=== PATIENT | male | born 1930 | race Caucasian/White ===

== ENCOUNTER 2016-10-22 18:06 | Inpatient (IN) | payer BC ==
--- NOTE | ~2016-10-22 | DS ---
Discharge Summary [facility] [address] [place]. [address] NAME: ARSALAN PHILLIPS : 29 STATUS : DIS IN PAT#: [id number] AGE: 86 ADM/REG DATE : 10/22/16 MR#: [id number] REPORT SERV DATE: 10/30/16 DICTATED BY: IRASEMA GONZALEZ DATE: 10/29/16 REPORT STATUS : Draft TRANSCRIBED BY: MODL DATE: 10/29/16 ADMISSION DATE: 10/22/2016 DISCHARGE DATE: 10/29/2016 HOSPITAL COURSE: This is an 86-year-old male with known past medical history of asthma; COPD; AR; DVT history, on chronic Eliquis; nephrolithiasis; and history of GI bleed, who came in with right pain. Was walking, had a same-level fall, decrease range of motion in that area. As a result, the patient was seen to have a spiral fracture of the right side for which Dr. Moraes did an ORIF of the right periprosthetic femur fracture for a right femoral periprosthetic fracture below the total hip; this was on the 10/26/2016. Prior to this, the patient had to have cardiac clearance, even had to have a heart catheterization Dr. Clarke had recommended for which was found to have apical mild hypokinesis, normal LVEF, elevated LVEDP angiographically, significant epicardial coronary artery disease, right dominant coronary anatomy with continued medical therapy and intensive risk-factor modification. The patient also had an IVC filter that was placed on 10/26/2016 for which prior to this ultrasound showed residual thrombus producing partial occlusion of the right distal femoral vein. The patient with mild hypoxia, BMP though is 93, likely atelectasis, likely had some reactive thrombocytosis, reactive leukocytosis. His procal was normal. No overt signs of infection. Had constipation, got mag citrate. Then started having some diarrhea as expected thereafter. DISCHARGE MEDICATIONS: Will include aspirin 81 p.o. daily; Lipitor 40 p.o. daily; carvedilol 6.25 p.o. b.i.d.; diltiazem CD 240 p.o. daily for atrial fibrillation and history of tachyarrhythmia; Cardura 4 mg p.o. daily as well as Colace 100 p.o. b.i.d. as well as Pepcid 20 p.o. b.i.d. just for 30 days, this patient was maintained on that for a concern for dyspepsia at one time; iron sulfate 300 p.o. t.i.d. with meals over the counter; hydroxyurea 500 p.o. daily, would follow up with his primary care doctor regarding his medication; multivitamin one tablet p.o. daily; Coumadin sliding scale; acetaminophen p.r.n.; Lortab p.r.n., see script; and Dulcolax p.r.n. CONSULTS: 1. Cardiology. 2. Orthopedic Surgery. PROCEDURES: See above. DISCHARGE DIAGNOSES: 1. Right periprosthetic femur fracture, status post open reduction and internal fixation. 2. The patient had an elevated troponin and type 2 demand ischemia, is not in NSTEMI as his catheterization was normal. 3. History atrial fibrillation. 4. Hyperlipidemia. 5. Hypertension. 6. 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 7. Systemic inflammatory response syndrome. 8. Reactive thrombocytosis. Discharge Summary [address] [address] NAME: ARSALAN PHILLIPS : 29 STATUS : DIS IN PAT#: [id number] AGE: 86 ADM/REG DATE : 10/22/16 MR#: [id number] REPORT SERV DATE: 10/30/16 DICTATED BY: IRASEAM GONZALEZ DATE: 10/29/16 REPORT STATUS : Draft TRANSCRIBED BY: CAMILO DATE: 10/29/16 All questions were answered, it took well over 30 minutes to do. OLIVER/CAMILO Irasema Gonzalez DO / [id number] CC: DO Andre Hull M.D.
--- NOTE | ~2016-10-22 | HP ---
History And Physical [address] [place]. [address] NAME: ARSALAN PHILLIPS : 29 STATUS : ADM IN [facility]#: [id number] AGE: 86 ADM/REG DATE : 10/22/16 MR#: [id number] REPORT SERV DATE: 10/23/16 DICTATED BY: YVETTE NEWBY DATE: 10/22/16 REPORT STATUS : Draft TRANSCRIBED BY: CAMILO DATE: 10/22/16 DATE OF ADMISSION: 10/22/2016 CHIEF COMPLAINT: Right leg pain status post fall. HISTORY OF PRESENT ILLNESS: The patient is an 86-year-old male with past medical history of right hip pain that has been constant, moderate severity. The patient was walking today and had same-level fall and had noted decreased motion in leg with worsened range of motion. Quality is sharp, nonradiating. There is no nausea, vomiting, fever, chills, shortness of breath. The patient did have mild dizziness prior to this event. His pain is worse with range of motion and relieved only at rest and pain medication given in emergency room. Symptoms are still currently present but better after getting Dilaudid. ADDITIONAL REVIEW OF SYSTEMS: A 10-point review of systems negative except for that noted in the HPI. PAST MEDICAL HISTORY: Asthma, COPD, [place], DVT history on chronic Eliquis, kidney stones, GI bleed. SURGERY HISTORY: Right hip and left femur by Dr. Chnichilla. SOCIAL HISTORY: No smoking, alcohol, or illicits but has rarely taken alcohol in the past. Retired arc welder apprentice. FAMILY HISTORY: Sibling with lung cancer. Parents history unknown. ALLERGIES: NO KNOWN DRUG ALLERGIES. MEDICATIONS: Tylenol, Eliquis, Refresh, Cardizem, Cardura, hydroxyurea, and multivitamin. PHYSICAL EXAMINATION: VITAL SIGNS: The patient's blood pressure 142/82, pulse initially 80 up to 122, respirations 12, O2 saturations 95%. GENERAL: No acute distress at rest. Elderly frail. EYES: No scleral icterus. EOMI. ENT: Nares patent. Tongue midline. Moist mucous membranes. RESPIRATORY: Clear to auscultation. No wheezes. CV: Mildly tachycardic but regular. GI: Soft, nontender, nondistended. : Deferred. MUSCULOSKELETAL: Pain with any type of rotation with right hip pain but does have motion of feet. Sensation is grossly intact. SKIN: Warm and dry. LYMPH: No cervical lymphadenopathy. HEME: No bleeding. NEURO: Alert and oriented. Sensation grossly intact. Does have motion in extremities History And Physical [place] [id number] [facility] [place]. [address] NAME: ARSALAN PHILLIPS : 29 STATUS : ADM IN PAT#: [id number] AGE: 86 ADM/REG DATE : 10/22/16 MR#: [id number] REPORT SERV DATE: 10/23/16 DICTATED BY: YVETTE NEWBY DATE: 10/22/16 REPORT STATUS : Draft TRANSCRIBED BY: MODL DATE: 10/22/16 except for pain with motion of right hip. PSYCH: Appropriate mood and affect. DATA: WBC count 14.6, H and H 15.7 and 46.9, platelets 525, INR 1.2. Sodium 136, potassium 3.9, chloride 102, bicarb 18, BUN creatinine 27 and 1.37, glucose 129, magnesium 2.0, troponin negative, calcium 9.7. Hip x-ray shows spiral fracture right side. Telemetry; sinus tachycardia. ASSESSMENT AND PLAN: 1. Right hip fracture. 2. Chronic urinary retention. 3. History of polycythemia vera, essential thrombocytopenia. 4. Acute blood loss anemia history. 5. Atrial fibrillation flutter history. 6. Mild chronic kidney disease. 7. Leukocytosis. 8. Tachycardia. PLAN: 1. For right hip fracture; ER discussed with on-call for Dr. Chinchilla as family is requesting Dr. Chinchilla as he has done most recent surgery and fairly adamant that they want Dr. Chinchilla. ED has discussed and to place in 5 pounds Greene's traction. N.p.o. at midnight. Possible OR evaluation in a.m. 2. Chronic urinary retention, p.r.n. Ndiaye as needed. 3. History of polycythemia vera and essential thrombocytopenia with history of acute blood loss anemia. We will type and cross 2 units. H and H, currently stable but two units to be preop hold. 4. Atrial fibrillation flutter, currently sinus rhythm in the emergency room. He is on chronic Eliquis and on Cardizem. 5. Atrial fibrillation flutter history. The patient family actually reports they are unaware of but was documented in prior notes. 6. Mild CKD. We will monitor. 7. Leukocytosis that appears reactive. No acute signs or symptoms of infection. 8. Tachycardia. Gentle IV fluids. The patient was initially regular rate but does have discomfort and pain. 9. Disposition; pending surgical evaluation. DDN/MODL Yvette Newby MD History And Physical [address] [address] NAME: ARSALAN PHILLIPS : 29 STATUS : ADM IN PAT#: [id number] AGE: 86 ADM/REG DATE : 10/22/16 MR#: [id number] REPORT SERV DATE: 10/23/16 DICTATED BY: YVETTE NEWBY DATE: 10/22/16 REPORT STATUS : Draft TRANSCRIBED BY: MODL DATE: 10/22/16 / [id number] CC: Zeinab Dumas M.D.
--- NOTE | ~2016-10-22 | HP ---
History And Physical [address] [place] [place]. [address] NAME: ARSALAN PHILLIPS : 29 STATUS : ADM IN [facility]#: [id number] AGE: 86 ADM/REG DATE : 10/22/16 MR#: [id number] REPORT SERV DATE: 10/23/16 DICTATED BY: MARIA C NAIR DATE: 10/23/16 REPORT STATUS : Draft TRANSCRIBED BY: MODSanjeev DATE: 10/23/16 DATE OF ADMISSION: 10/22/2016 CHIEF COMPLAINT: Right hip and femur pain. HISTORY: This is an 86-year-old male with previous right total hip arthroplasty by one of my partners, tripped and fell yesterday and broke his femur. Denies pain or injury elsewhere except for some soreness in his left ankle. ALLERGIES: NONE. MEDICATIONS: See chart. PAST MEDICAL HISTORY: Hypertension, diverticulitis, GI bleed, history of prostate cancer, thrombocytosis, and polycythemia vera. He had no loss of consciousness, shortness of breath, chest pain, etc., but is little bit lightheaded before he fell. PAST SURGICAL HISTORY: Hip replacement in 2008, broken femur on the left in 2016. SOCIAL HISTORY: Quit tobacco. He is . No alcohol or illicit drug use. FAMILY HISTORY: No known anesthetic complications. REVIEW OF SYSTEMS: No recent illnesses. PHYSICAL EXAMINATION: GENERAL: He is alert and oriented x3, in no apparent distress. HEENT: Atraumatic, normocephalic. NECK: Supple. CHEST: Symmetric. Nontender. LUNGS: Per AA evaluation. CARDIOVASCULAR: Regular. ABDOMEN: Soft. No mass. EXTREMITIES: Both upper extremities, left lower extremity without acute trauma. He is nontender over his left ankle with minimal if any swelling. Right lower extremity compartment supple. Somewhat thready 1+ pulses. NEUROLOGIC: Sensory motor appears to be decreased secondary to pain. X-RAY: Comminuted right distal femur periprosthetic fracture. ASSESSMENT: Right periprosthetic distal femur fracture. PLAN: I had a lengthy discussion with the patient and his and his son regarding the serious nature of this fracture, comminution, blood clot, other risks of surgery, and also the prolonged expected rehabilitation recovery time. After discussion of all this, they History And Physical [address] [place]. [address] NAME: ARSALAN PHILLIPS : 29 STATUS : ADM IN PAT#: [id number] AGE: 86 ADM/REG DATE : 10/22/16 MR#: [id number] REPORT SERV DATE: 10/23/16 DICTATED BY: MARIA C NAIR DATE: 10/23/16 REPORT STATUS : Draft TRANSCRIBED BY: MODL DATE: 10/23/16 wished to proceed when he is cleared by medicine. WTB/MODL Luma Nair M.D. / [id number] CC: Zeinab Fletcher M.D.
--- NOTE | ~2016-10-22 | CN ---
Consultation Report [facility] [address] [facility] [place]. [address] NAME: ARSALAN PELAYO : 29 STATUS : ADM IN [facility]#: [id number] AGE: 86 ADM/REG DATE : 10/22/16 MR#: [id number] REPORT SERV DATE: 10/23/16 DICTATED BY: JUAN CARLOS BELL III DATE: 10/23/16 REPORT STATUS : Draft TRANSCRIBED BY: CAMILO DATE: 10/23/16 CONSULTATION DATE OF CONSULTATION: 10/23/2016 HISTORY OF PRESENT ILLNESS: Mr. Arsalan Pelayo is an 86-year-old, white male referred for evaluation of paroxysmal atrial fibrillation with a rapid ventricular response and an elevated troponin I level. The patient has a history of paroxysmal atrial fibrillation. The patient denied any history of palpitations. The patient did well until 10/22/2016. At that time, the patient experienced a fall resulting in a right paraprosthetic distal femur fracture. The patient subsequently developed atrial fibrillation-flutter with a rapid ventricular response. The atrial fibrillation apparently resolved without intervention. Serial troponin I levels were 0.25, 0.35 and 0.28, respectively. The patient's B-type natriuretic peptide level was 384.9 pg/mL. A 12-lead electrocardiogram performed on 10/23/2016, demonstrated sinus rhythm at a rate of 68 beats per minute, first degree AV block, left axis deviation, remote anteroseptal myocardial infarction and inferior nonspecific T-wave abnormalities. The patient was referred for evaluation. The patient complained of dependent bilateral pedal edema. The patient denied any history of chest pain, palpitations, syncope, dyspnea on exertion, orthopnea, paroxysmal nocturnal dyspnea, hip claudication, or lower extremity claudication. The patient has no history of rheumatic fever or cardiac murmur. The patient's only documented coronary artery disease risk factor was hypertension. PAST MEDICAL HISTORY: 1. Hypertension. 2. History of a postoperative deep venous thrombosis. 3. History of GI bleed. 4. Polycythemia rubra vera. 5. Essential thrombocytosis. 6. Mild chronic kidney disease. OPERATIVE PROCEDURES: 1. Status post right hip replacement. 2. Status post left femur open reduction and internal fixation. 3. Status post OU cataract extractions with intra-ocular lens implants. 4. Status post tonsillectomy. ALLERGIES: NONE. MEDICATIONS: 1. Carvedilol 3.125 mg p.o. b.i.d. 2. Diltiazem CD 240 mg p.o. daily. 3. Doxazosin 4 mg p.o. daily. Consultation Report [place] [address] [place]. [address] NAME: ARSALAN PELAYO : 29 STATUS : ADM IN PAT#: [id number] AGE: 86 ADM/REG DATE : 10/22/16 MR#: [id number] REPORT SERV DATE: 10/23/16 DICTATED BY: JUAN CARLOS BELL III DATE: 10/23/16 REPORT STATUS : Draft TRANSCRIBED BY: CAMILO DATE: 10/23/16 4. Heparin 5000 IU subcu q.8 hours. 5. Hydroxyurea 500 mg p.o. daily. FAMILY HISTORY: Positive for lung cancer. Negative for myocardial infarction, hypertension, stroke, seizures, diabetes mellitus, kidney disease, liver disease, anemia, arthritis, and mental illness. SOCIAL HISTORY: The patient has a remote history of tobacco and alcohol use. PHYSICAL EXAMINATION: GENERAL: Demonstrated an alert, thin, elderly white male, in no acute distress. VITAL SIGNS: Demonstrated a temperature of 98.4 orally, respiratory rate of 20 breaths per minute, and a blood pressure of 128/91 mmHg with a heart rate of 61 beats per minute. SKIN: Warm and dry. NECK: Supple and nontender. There was decreased range of motion. There was no appreciable lymphadenopathy or thyromegaly. There were no carotid bruits. There was no jugular venous distention at 90 degrees. BACK: Examination of the back could not be performed. CHEST: Examination of the chest demonstrated posterior inspiratory crackles. There were no rhonchi, wheezes, or pleural rubs. There was symmetrical expansion of the chest. CARDIAC: Cardiac examination demonstrated a nonpalpable apical impulse. There was a regular rhythm and rate with a grade II/ systolic murmur heard at the left ventricular apex. There was no significant radiation of the systolic murmur. There was no diastolic murmur, rub, gallop, or midsystolic click. There were no thrills or heaves. ABDOMEN: Examination of the abdomen demonstrated that it was mildly obese, soft, and nontender. There was no appreciable hepatosplenomegaly or masses. Bowel sounds were intact. There were no abdominal or femoral bruits. EXTREMITIES: Examination of the extremities demonstrated that they were symmetrical. There was decreased range of motion. There was no cyanosis or clubbing. There was 2+ pitting bilateral pedal edema. Pulses were 2+ and equal at the radial, femoral, and posterior tibial arteries. The right dorsalis pedis pulse was trace to nonpalpable and the left dorsalis pedis pulse was 1+. ASSESSMENT AND PLAN: Mr. Arsalan Pelayo is an 86-year-old, white male with one other risk factor for coronary atherosclerotic disease (i.e. hypertension) and a history of perioperative paroxysmal atrial fibrillation (2015); who now presents with asymptomatic paroxysmal atrial fibrillation with a rapid ventricular response, elevated troponin I level, abnormal 12-lead electrocardiogram, systolic murmur, and a left periprosthetic distal femur fracture. The patient denied angina. The 12-lead electrocardiogram demonstrated inferior nonspecific T-wave abnormalities and suggested a remote anteroseptal myocardial infarction. The serial troponin I levels are consistent with an acute non ST-segment elevation myocardial infarction. I would recommend the addition of aspirin, 2% Nitrol paste, and atorvastatin. The patient will require cardiac catheterization and possible revascularization prior to right femur open reduction and internal fixation. Consultation Report [address] [address] NAME: ARSALAN PELAYO : 29 STATUS : ADM IN [facility]#: [id number] AGE: 86 ADM/REG DATE : 10/22/16 MR#: [id number] REPORT SERV DATE: 10/23/16 DICTATED BY: JUAN CARLOS BELL III DATE: 10/23/16 REPORT STATUS : Draft TRANSCRIBED BY: MODSanjeev DATE: 10/23/16 Mr. Pelayo has asymptomatic paroxysmal atrial fibrillation with a rapid ventricular response. The etiology of the patient's atrial fibrillation was unclear. I would recommend a thyroid profile and an echocardiogram. The patient's [id number] VASc score was 3. The patient will require systemic anticoagulation for at least six months. It has been a pleasure participating in the care of your patient. TAE/CAMILO Juan Carlos Bell III, M.D., [facility], [facility] / [id number] CC: Zeinab Fletcher M.D.
--- NOTE | ~2016-10-22 | OP ---
Record Of Operation [facility] [address] [place]. [address] NAME: ARSALAN PHILLIPS : 29 STATUS : ADM IN PAT#: [id number] AGE: 86 ADM/REG DATE : 10/22/16 MR#: [id number] REPORT SERV DATE: 10/28/16 DICTATED BY: MARIA C NAIR DATE: 10/28/16 REPORT STATUS : Draft TRANSCRIBED BY: MODL DATE: 10/28/16 DATE OF PROCEDURE: 10/26/2016 PREOPERATIVE DIAGNOSIS: Right femur periprosthetic femur fracture below total hip. POSTOPERATIVE DIAGNOSIS: Right femur periprosthetic femur fracture below total hip. PROCEDURE: ORIF of the right periprosthetic femur fracture. SURGEON: Luma Nair M.D. MANAGER BABY: See chart. DESCRIPTION OF PROCEDURE: The patient was taken to the operating room, and placed supine on the table in normal fashion without incident. General anesthetic was induced per the anesthesiologist. The patient was carefully positioned, padded, prepped and draped in normal sterile fashion for the right lateral decubitus hip approach. Sharp dissection was made through a portion of the old incision which extended distally with electrocautery through the fat. The IT band and vastus were split in line with the fibers down on the femur. This was extremely long comminuted spiral femur fracture with multiple pieces including the large distal lateral butterfly fragment. I chose a long Daniel plate and held it provisionally affixed to the plate. There were multiple screws placed in the standard fashion with drill depth gauge and self-tapping screw placement as well as approximately seven cables were passed staying directly on the bone. Tightened, crimped, and cut short. I also used DBX bone matrix around some of the fracture areas because of the severe comminution. This recreated his leg length and alignment well. Wound was copiously irrigated. I used TXA to help control the multiple bleeding surface areas. The wound was then closed in a layered fashion over medium ConstaVac drain distally and anteriorly. COMPLICATIONS: None. SPECIMENS: None. ESTIMATED BLOOD LOSS: About 300 mL. WTB/MODL Luma Nair M.D. / [id number] CC: Rosalio Gonzalez DO Record Of Operation [address] [address] NAME: ARSALAN PHILLIPS : 29 STATUS : ADM IN PAT#: [id number] AGE: 86 ADM/REG DATE : 10/22/16 MR#: [id number] REPORT SERV DATE: 10/28/16 DICTATED BY: MARIA C NAIR DATE: 10/28/16 REPORT STATUS : Draft TRANSCRIBED BY: MODL DATE: 10/28/16 Andre Manuel M.D.
[~2016-10-22 18:06] MED LIST: ACET500CAP PO; ALEVE220 MG PO; ASAB PO; CARDCD240 PO; CARDU4 PO; CARDURA XL4 MG PO; CARTIA XT240 MG/24 PO; CENTRUM PO; COUMADIN3 MG PO; DOK100 MG PO; DSS PO; ELIQUIS 5 MG TAB5 MG PO; IODINE TOP; IRON325 MG PO; JAKAFI10 MG PO; LEVAQUIN750 MG PO; LOP25 PO; MAALOX PO; MINTOX PLUS PO; MIRALAXPKT PO; MULTIVIT/MIN PO; PCET PO; PEP20 PO; TEARS PLUS OPH; ZOFRAN4 PO
[2016-10-22 19:13] LABS: BASOPHILS 0.6 %; BASOPHILS ABSOLUTE 0.09 10/3/uL (0.0-0.16); EOSINOPHILS 0.5 %; EOSINOPHILS ABSOLUTE 0.07 10/3/uL (0.0-0.53); ER CBC TAT 0 Hrs 10 Mins; IMMATURE GRANULOCYTES 0.3 %; IMMATURE GRANULOCYTES ABSOLUTE 0.05 10/3/uL (0.0-0.11); LYMPHOCYTES ABSOLUTE 1.16 10/3/uL (0.67-4.30); MEAN CORPUS HGB CONC 33.5 g/dL (32.0-36.0); MEAN PLATELET VOLUME 9.8 fL (9.2-13.0); MONOCYTES 9.3 %; MONOCYTES ABSOLUTE 1.36 10/3/uL (0.21-1.20); NEUTROPHILS 81.3 %; NEUTROPHILS ABSOLUTE 11.83 10/3/uL (2.02-8.40); PLATELET COUNT 525 10/3/uL (150-400); RBC DISTRIBUTION WIDTH 17.5 % (12.0-16.0); WHITE BLOOD CELLS 14.6 10/3/uL (4.5-10.5)
[2016-10-22 19:14] LABS: HEMATOCRIT 46.9 % (40.0-51.0); HEMOGLOBIN 15.7 g/dL (13.6-17.8); MANUAL DIFF NO %; MEAN CORPUSCULAR HEMOGLOB 32.6 pg (26.0-34.0); MEAN CORPUSCULAR VOLUME 97.5 fL (80-100); RED CELL COUNT 4.81 10/6/uL (4.7-6.1)
[2016-10-22 19:23] LABS: INTERNATIONAL NORMAL RATI 1.2 UNITS (-); PARTIAL THROMBO TIME 36.2 SEC (22.5-37.2); PROTIME (NOT ORD) 15.1 SEC (12.0-14.5)
[2016-10-22 19:31] LABS: CALCIUM, SERUM 9.7 MG/DL (8.5-10.4); CHEST PAIN PROFILE TAT 0 Hrs 28 Mins; CHLORIDE, SERUM 102 MMOL/L (96-112); CREATININE 1.37 MG/DL (0.70-1.30); GFR AFRICAN AMERICAN 53 ML/MIN (>=60); GFR NON AFRICAN AMERICAN 46 ML/MIN (>=60); SODIUM, SERUM 136 MMOL/L (135-148); TROPONIN I 0.04 NG/ML (<0.05)
[2016-10-22 19:32] LABS: BUN (BLOOD UREA NITROGEN) 27 MG/DL (6-23); CO2 (CARBON DIOXIDE) 18 MMOL/L (24-34); GLUCOSE, SERUM 129 MG/DL (60-99); POTASSIUM, SERUM 3.9 MMOL/L (3.5-5.3)
[2016-10-22] MEDS ORDERED: HYDREA PO (20:58)
[2016-10-22] MEDS ORDERED: ELIQUIS 2.5 MG2.5 MG PO (20:58)
[2016-10-22] MEDS ORDERED: MVI PO (20:59)
[2016-10-22] MEDS ORDERED: REFRESH OPH SO0.3 ML OPH (20:59)
[2016-10-22] MEDS ORDERED: T PO (21:00)
[2016-10-22] MEDS ORDERED: CARDU4 PO (21:04)
[2016-10-23 08:06] LABS: BASOPHILS 0.3 %; BASOPHILS ABSOLUTE 0.04 10/3/uL (0.0-0.16); EOSINOPHILS 0.4 %; EOSINOPHILS ABSOLUTE 0.05 10/3/uL (0.0-0.53); HEMATOCRIT 43.6 % (40.0-51.0); HEMOGLOBIN 14.3 g/dL (13.6-17.8); IMMATURE GRANULOCYTES 0.3 %; IMMATURE GRANULOCYTES ABSOLUTE 0.04 10/3/uL (0.0-0.11); LYMPHOCYTES ABSOLUTE 0.85 10/3/uL (0.67-4.30); MANUAL DIFF NO %; MEAN CORPUS HGB CONC 32.8 g/dL (32.0-36.0); MEAN CORPUSCULAR HEMOGLOB 32.6 pg (26.0-34.0); MEAN CORPUSCULAR VOLUME 99.3 fL (80-100); MEAN PLATELET VOLUME 9.7 fL (9.2-13.0); MONOCYTES 13.4 %; MONOCYTES ABSOLUTE 1.91 10/3/uL (0.21-1.20); NEUTROPHILS 79.6 %; NEUTROPHILS ABSOLUTE 11.32 10/3/uL (2.02-8.40); PLATELET COUNT 546 10/3/uL (150-400); RBC DISTRIBUTION WIDTH 17.4 % (12.0-16.0); RED CELL COUNT 4.39 10/6/uL (4.7-6.1); WHITE BLOOD CELLS 14.2 10/3/uL (4.5-10.5)
[2016-10-23 08:12] LABS: INTERNATIONAL NORMAL RATI 1.2 UNITS (-); PROTIME (NOT ORD) 14.9 SEC (12.0-14.5)
[2016-10-23 08:22] LABS: CHLORIDE, SERUM 109 MMOL/L (96-112); CREATININE 1.02 MG/DL (0.70-1.30); GFR AFRICAN AMERICAN 76 ML/MIN (>=60); GFR NON AFRICAN AMERICAN 66 ML/MIN (>=60); GLUCOSE, SERUM 110 MG/DL (60-99); SGOT(AST) 31 U/L (5-40); SGPT(ALT) 21 U/L (5-65); SODIUM, SERUM 140 MMOL/L (135-148); TOTAL BILIRUBIN 0.5 MG/DL (0-1.2); TOTAL PROTEIN 7.2 G/DL (6.0-8.5)
[2016-10-23 08:26] LABS: A/G RATIO 0.8 (0.7-1.9); ALBUMIN 3.1 G/DL (3.5-5.0); ALKALINE PHOSPHATASE 89 U/L (45-117); BUN (BLOOD UREA NITROGEN) 21 MG/DL (6-23); CALCIUM, SERUM 8.7 MG/DL (8.5-10.4); CO2 (CARBON DIOXIDE) 22 MMOL/L (24-34); GLOBULIN 4.1 G/DL (2.5-4.1)
[2016-10-23 08:28] LABS: ASCORBIC ACID (UR NOT ORDER) NEG (NEG); BILIRUBIN, URINE NEGATIVE (NEG); KETONE, URINE NEGATIVE (NEG); LEUKOCYTE ESTERASE(NOT OR NEG (NEG); WBC (NOT ORDERED) (RFLEX) 3 (0-5)
[2016-10-24 07:23] LABS: BASOPHILS 0.6 %; BASOPHILS ABSOLUTE 0.09 10/3/uL (0.0-0.16); EOSINOPHILS 0.9 %; EOSINOPHILS ABSOLUTE 0.13 10/3/uL (0.0-0.53); HEMATOCRIT 41.4 % (40.0-51.0); HEMOGLOBIN 13.3 g/dL (13.6-17.8); IMMATURE GRANULOCYTES 0.3 %; IMMATURE GRANULOCYTES ABSOLUTE 0.04 10/3/uL (0.0-0.11); LYMPHOCYTES 6.4 %; LYMPHOCYTES ABSOLUTE 0.91 10/3/uL (0.67-4.30); MEAN CORPUS HGB CONC 32.1 g/dL (32.0-36.0); MEAN CORPUSCULAR HEMOGLOB 32.2 pg (26.0-34.0); MEAN CORPUSCULAR VOLUME 100.2 fL (80-100); MONOCYTES 14.3 %; MONOCYTES ABSOLUTE 2.02 10/3/uL (0.21-1.20); NEUTROPHILS 77.5 %; NEUTROPHILS ABSOLUTE 10.96 10/3/uL (2.02-8.40); PLATELET COUNT 463 10/3/uL (150-400); RBC DISTRIBUTION WIDTH 17.7 % (12.0-16.0); RED CELL COUNT 4.13 10/6/uL (4.7-6.1); WHITE BLOOD CELLS 14.2 10/3/uL (4.5-10.5)
[2016-10-24 07:24] LABS: MANUAL DIFF NO %
[2016-10-24 07:41] LABS: FREE T4 1.24 NG/DL (0.76-1.46)
[2016-10-24 07:42] LABS: TROPONIN I 0.15 NG/ML (<0.05); ULTRASENSITIVE TSH 1.69 MCIU/ML (0.358-3.740)
[2016-10-25 05:32] LABS: BASOPHILS 0.4 %; BASOPHILS ABSOLUTE 0.06 10/3/uL (0.0-0.16); EOSINOPHILS 0.9 %; EOSINOPHILS ABSOLUTE 0.14 10/3/uL (0.0-0.53); HEMATOCRIT 40.3 % (40.0-51.0); IMMATURE GRANULOCYTES 0.2 %; IMMATURE GRANULOCYTES ABSOLUTE 0.03 10/3/uL (0.0-0.11); LYMPHOCYTES 7.8 %; LYMPHOCYTES ABSOLUTE 1.16 10/3/uL (0.67-4.30); MEAN CORPUS HGB CONC 32.3 g/dL (32.0-36.0); MEAN CORPUSCULAR HEMOGLOB 32.3 pg (26.0-34.0); MEAN PLATELET VOLUME 9.9 fL (9.2-13.0); MONOCYTES 13.4 %; MONOCYTES ABSOLUTE 1.98 10/3/uL (0.21-1.20); NEUTROPHILS 77.3 %; NEUTROPHILS ABSOLUTE 11.43 10/3/uL (2.02-8.40); PLATELET COUNT 463 10/3/uL (150-400); RBC DISTRIBUTION WIDTH 17.3 % (12.0-16.0); RED CELL COUNT 4.03 10/6/uL (4.7-6.1); WHITE BLOOD CELLS 14.8 10/3/uL (4.5-10.5)
[2016-10-25 05:39] LABS: CALCIUM, SERUM 8.3 MG/DL (8.5-10.4); CHLORIDE, SERUM 106 MMOL/L (96-112); CO2 (CARBON DIOXIDE) 22 MMOL/L (24-34); CREATININE 1.02 MG/DL (0.70-1.30); GFR AFRICAN AMERICAN 76 ML/MIN (>=60); GFR NON AFRICAN AMERICAN 66 ML/MIN (>=60); GLUCOSE, SERUM 95 MG/DL (60-99); HDL CHOLESTEROL 68 MG/DL (> 39); POTASSIUM, SERUM 3.7 MMOL/L (3.5-5.3); SODIUM, SERUM 136 MMOL/L (135-148)
[2016-10-25 05:40] LABS: MANUAL DIFF NO %
[2016-10-25 05:41] LABS: BUN (BLOOD UREA NITROGEN) 17 MG/DL (6-23); CHOL/HDL RATIO(NOT ORDER) 1.6 (0-5); CHOLESTEROL 110 MG/DL (< 200); LDL CHOLESTEROL 33 MG/DL (< 130); NON-HDL CHOLESTEROL 42 MG/DL (< 160); TRIGLYCERIDE 47 MG/DL (< 150)
[2016-10-26 05:25] LABS: INTERNATIONAL NORMAL RATI 1.2 UNITS (-); PROTIME (NOT ORD) 15.2 SEC (12.0-14.5)
[2016-10-26 05:26] LABS: BASOPHILS 0.4 %; BASOPHILS ABSOLUTE 0.06 10/3/uL (0.0-0.16); CALCIUM, SERUM 8.4 MG/DL (8.5-10.4); CHLORIDE, SERUM 104 MMOL/L (96-112); CO2 (CARBON DIOXIDE) 25 MMOL/L (24-34); CREATININE 1.01 MG/DL (0.70-1.30); EOSINOPHILS 1.5 %; EOSINOPHILS ABSOLUTE 0.24 10/3/uL (0.0-0.53); GFR AFRICAN AMERICAN 77 ML/MIN (>=60); GFR NON AFRICAN AMERICAN 67 ML/MIN (>=60); GLUCOSE, SERUM 93 MG/DL (60-99); HEMOGLOBIN 12.8 g/dL (13.6-17.8); IMMATURE GRANULOCYTES 0.3 %; IMMATURE GRANULOCYTES ABSOLUTE 0.04 10/3/uL (0.0-0.11); LYMPHOCYTES 7.5 %; LYMPHOCYTES ABSOLUTE 1.19 10/3/uL (0.67-4.30); MEAN CORPUS HGB CONC 32.8 g/dL (32.0-36.0); MEAN CORPUSCULAR HEMOGLOB 32.5 pg (26.0-34.0); MONOCYTES 13.2 %; NEUTROPHILS 77.1 %; NEUTROPHILS ABSOLUTE 12.27 10/3/uL (2.02-8.40); PLATELET COUNT 533 10/3/uL (150-400); POTASSIUM, SERUM 4.1 MMOL/L (3.5-5.3); RBC DISTRIBUTION WIDTH 17.6 % (12.0-16.0); RED CELL COUNT 3.94 10/6/uL (4.7-6.1); SODIUM, SERUM 137 MMOL/L (135-148); WHITE BLOOD CELLS 15.9 10/3/uL (4.5-10.5)
[2016-10-26 05:28] LABS: BUN (BLOOD UREA NITROGEN) 21 MG/DL (6-23); MANUAL DIFF NO %
[2016-10-27 05:02] LABS: HEMATOCRIT 39.7 % (40.0-51.0); HEMOGLOBIN 12.7 g/dL (13.6-17.8)
[2016-10-27 05:05] LABS: INTERNATIONAL NORMAL RATI 1.2 UNITS (-)
[2016-10-27 05:17] LABS: BUN (BLOOD UREA NITROGEN) 23 MG/DL (6-23); CALCIUM, SERUM 8.6 MG/DL (8.5-10.4); CHLORIDE, SERUM 105 MMOL/L (96-112); CO2 (CARBON DIOXIDE) 25 MMOL/L (24-34); GFR AFRICAN AMERICAN 70 ML/MIN (>=60); GFR NON AFRICAN AMERICAN 60 ML/MIN (>=60); GLUCOSE, SERUM 98 MG/DL (60-99); POTASSIUM, SERUM 4.7 MMOL/L (3.5-5.3); SODIUM, SERUM 136 MMOL/L (135-148)
[2016-10-28 06:31] LABS: INTERNATIONAL NORMAL RATI 1.5 UNITS (-); PROTIME (NOT ORD) 17.8 SEC (12.0-14.5)
[2016-10-28 06:40] LABS: BASOPHILS 0.3 %; BASOPHILS ABSOLUTE 0.05 10/3/uL (0.0-0.16); BUN (BLOOD UREA NITROGEN) 23 MG/DL (6-23); CALCIUM, SERUM 8.4 MG/DL (8.5-10.4); CHLORIDE, SERUM 103 MMOL/L (96-112); CO2 (CARBON DIOXIDE) 26 MMOL/L (24-34); CREATININE 0.95 MG/DL (0.70-1.30); EOSINOPHILS 1.3 %; EOSINOPHILS ABSOLUTE 0.19 10/3/uL (0.0-0.53); GFR AFRICAN AMERICAN 83 ML/MIN (>=60); GFR NON AFRICAN AMERICAN 72 ML/MIN (>=60); GLUCOSE, SERUM 115 MG/DL (60-99); HEMOGLOBIN 11.3 g/dL (13.6-17.8); IMMATURE GRANULOCYTES 0.3 %; IMMATURE GRANULOCYTES ABSOLUTE 0.05 10/3/uL (0.0-0.11); LYMPHOCYTES ABSOLUTE 0.74 10/3/uL (0.67-4.30); MEAN CORPUS HGB CONC 32.7 g/dL (32.0-36.0); MEAN CORPUSCULAR HEMOGLOB 31.5 pg (26.0-34.0); MEAN CORPUSCULAR VOLUME 96.4 fL (80-100); MEAN PLATELET VOLUME 9.6 fL (9.2-13.0); MONOCYTES 10.6 %; MONOCYTES ABSOLUTE 1.57 10/3/uL (0.21-1.20); NEUTROPHILS 82.5 %; PLATELET COUNT 584 10/3/uL (150-400); POTASSIUM, SERUM 4.2 MMOL/L (3.5-5.3); RBC DISTRIBUTION WIDTH 17.1 % (12.0-16.0); RED CELL COUNT 3.59 10/6/uL (4.7-6.1); SODIUM, SERUM 135 MMOL/L (135-148); WHITE BLOOD CELLS 14.8 10/3/uL (4.5-10.5)
[2016-10-28 06:41] LABS: PHOSPHORUS, SERUM 2.3 MG/DL (2.5-4.5)
[2016-10-28 06:44] LABS: HEMATOCRIT 34.6 % (40.0-51.0); MANUAL DIFF NO %
[2016-10-28 06:53] LABS: PLATELET ESTIMATE SLT INC (ADEQUATE)
[2016-10-28 06:54] LABS: ANISOCYTOSIS 1+ (5-10/OIF) (0-5/OIF); GIANT PLATELET OCC; POLYCHROMASIA 1+ (2-5/OIF) (0-1/OIF)
[2016-10-29 06:02] LABS: INTERNATIONAL NORMAL RATI 2.8 UNITS (-)
[2016-10-29 06:03] LABS: PROTIME (NOT ORD) 28.9 SEC (12.0-14.5)
[2016-10-29 06:11] LABS: PHOSPHORUS, SERUM 2.6 MG/DL (2.5-4.5)
[2016-10-29 06:27] LABS: BASOPHILS 0.1 %; BASOPHILS ABSOLUTE 0.02 10/3/uL (0.0-0.16); EOSINOPHILS 0 %; HEMATOCRIT 34.7 % (40.0-51.0); HEMOGLOBIN 11.4 g/dL (13.6-17.8); IMMATURE GRANULOCYTES 0.3 %; IMMATURE GRANULOCYTES ABSOLUTE 0.07 10/3/uL (0.0-0.11); LYMPHOCYTES 3.3 %; LYMPHOCYTES ABSOLUTE 0.71 10/3/uL (0.67-4.30); MEAN CORPUS HGB CONC 32.9 g/dL (32.0-36.0); MEAN CORPUSCULAR VOLUME 97.5 fL (80-100); MEAN PLATELET VOLUME 10.1 fL (9.2-13.0); MONOCYTES 8.4 %; MONOCYTES ABSOLUTE 1.79 10/3/uL (0.21-1.20); NEUTROPHILS 87.9 %; NEUTROPHILS ABSOLUTE 18.65 10/3/uL (2.02-8.40); RBC DISTRIBUTION WIDTH 16.9 % (12.0-16.0); RED CELL COUNT 3.56 10/6/uL (4.7-6.1)
[2016-10-29 06:28] LABS: PLATELET COUNT 720 10/3/uL (150-400); WHITE BLOOD CELLS 21.2 10/3/uL (4.5-10.5)
[2016-10-29 06:29] LABS: MANUAL DIFF NO %
[2016-11-07] MEDS ORDERED: COUMADIN3 MG PO (14:27)
[2016-11-07] MEDS ORDERED: PEP20 PO (14:28)
[2016-11-07] MEDS ORDERED: FERROUS SULF325 M1 PO (14:28)
[2016-11-07] MEDS ORDERED: ASAB PO (14:29)
[2016-11-07] MEDS ORDERED: DSS PO (14:29)
[2016-11-07] MEDS ORDERED: CARDCD240 PO (14:29)
[2016-11-07] MEDS ORDERED: COREG6 PO (14:29)
[2016-11-07] MEDS ORDERED: HYDREA PO (14:30)
[2016-11-07] MEDS ORDERED: CARDU4 PO (14:30)
[2016-11-07] MEDS ORDERED: CENTRUM PO (14:30)
[2016-11-07] MEDS ORDERED: NORCO1 TA1 PO (14:31)
[2017-02-27] MEDS ORDERED: CARDU4 PO (20:02)
[2017-02-27] MEDS ORDERED: CARDCD240 PO (20:02)
[2017-02-27] MEDS ORDERED: COREG6 PO (20:02)
[2017-02-27] MEDS ORDERED: NORCO1 TA1 PO (20:03)
[2017-02-27] MEDS ORDERED: ELIQUIS 2.5 MG2.5 MG PO (20:03)
[2017-02-27] MEDS ORDERED: HYDREA PO (20:04)
[2017-02-27] MEDS ORDERED: PRILO PO (20:04)
[2017-02-27] MEDS ORDERED: MIRALAX POWDER1 PKT PO (20:04)
[2017-03-08] MEDS ORDERED: CORDARONE PO (13:52)
== END 2016-10-29 13:28 | DRG 481 ==
LOC: ER 18:06 → 1SO 20:31
PROVIDERS: Emergency Medicine; Internal Medicine; Internal Medicine Cardiovascular Disease; Nurse Practitioner Gerontology; Specialist; Student in an Organized Health Care Education/Training Program
PROC: B2111ZZ Fluoroscopy of Multiple Coronary Arteries using Low Osmolar Contrast (ICD-10-PCS; 2016-10-25)
PROC: B2151ZZ Fluoroscopy of Left Heart using Low Osmolar Contrast (ICD-10-PCS; 2016-10-25)
PROC: 4A023N7 Measurement of Cardiac Sampling and Pressure, Left Heart, Percutaneous Approach (ICD-10-PCS; 2016-10-25)
PROC: 06H03DZ Insertion of Intraluminal Device into Inferior Vena Cava, Percutaneous Approach (ICD-10-PCS; 2016-10-26)
PROC: 0QS604Z Reposition Right Upper Femur with Internal Fixation Device, Open Approach (ICD-10-PCS; principal; 2016-10-26 18:30)
DX: M97.01XA Periprosthetic fracture around internal prosthetic right hip joint, initial encounter (principal); I24.8 Other forms of acute ischemic heart disease; I44.2 Atrioventricular block, complete; I82.411 Acute embolism and thrombosis of right femoral vein; R65.10 Systemic inflammatory response syndrome (SIRS) of non-infectious origin without acute organ dysfunction; E11.22 Type 2 diabetes mellitus with diabetic chronic kidney disease; I48.0 Paroxysmal atrial fibrillation; J44.9 Chronic obstructive pulmonary disease, unspecified; R33.9 Retention of urine, unspecified; I12.9 Hypertensive chronic kidney disease with stage 1 through stage 4 chronic kidney disease, or unspecified chronic kidney disease; E78.5 Hyperlipidemia, unspecified; N18.9 Chronic kidney disease, unspecified; E66.9 Obesity, unspecified; D47.3 Essential (hemorrhagic) thrombocythemia; R09.02 Hypoxemia; I25.10 Atherosclerotic heart disease of native coronary artery without angina pectoris; W18.30XA Fall on same level, unspecified, initial encounter; I25.2 Old myocardial infarction; Z87.891 Personal history of nicotine dependence; Z79.01 Long term (current) use of anticoagulants; Z79.899 Other long term (current) drug therapy; Z85.46 Personal history of malignant neoplasm of prostate; Z86.718 Personal history of other venous thrombosis and embolism; Z87.442 Personal history of urinary calculi; Z96.641 Presence of right artificial hip joint
CPT/HCPCS: 36415; 37191; 71010; 72170; 73502-RT; 73552-RT; 73600-LT; 80048; 80053; 80061; 81001; 83735; 83880; 84100; 84145; 84439; 84443; 84484; 85014; 85018; 85025; 85610; 85730; 86850; 86900; 86901; 86920; 93005; 93306; 93458; 93970; 96374; 97110-GO; 97110-GP; 97162-GP; 97166-GO; 99152; 99153; 99291; A9270-GY; C1713; C1760; C1769; C1880; C1894; G8978-CL-GP; G8979-CK-GP; J0690; J1170; J1885; J2250; J2274; J2370; J2405; J2710; J2795; J3010; Q9967

== ENCOUNTER 2016-11-07 16:14 | Inpatient (IN) | payer BC ==
--- NOTE | ~2016-11-07 | EGD ---
EGD REPORT [facility] [address] [place] [address] NAME: ARSALAN PELAYO : 29 STATUS : ADM IN PAT#: [id number] AGE: 86 ADM/REG DATE : 11/07/16 MR#: [id number] REPORT SERV DATE: 11/09/16 DICTATED BY: JOSÉ WILSON DATE: 11/09/16 REPORT STATUS : Draft TRANSCRIBED BY: [employer] DATE: 11/09/16 [facility] Patient Name: Arsalan Pelayo Date of : 1930 Attending MD: JOSÉ WILSON MD Procedure Date No Time: 11/09/2016 Procedure: Upper GI endoscopy Indications: Hematochezia, Melena Referring MD: PATRICIA DIAZ MD Medicines: as per anesthesia Complications: No immediate complications. Procedure: Pre-Anesthesia Assessment: - ASA Grade Assessment: III - A patient with severe systemic disease. After obtaining informed consent, the endoscope was passed under direct vision. Throughout the procedure, the patient's blood pressure, pulse, and oxygen saturations were monitored continuously. The GIF [id number] was introduced through the mouth, and advanced to the third part of duodenum. The upper GI endoscopy was accomplished without difficulty. The patient tolerated the procedure. Findings: The examined esophagus was normal. A small hiatus hernia was present. The examined duodenum was normal. Impression: - Normal esophagus. - Hiatus hernia. - Normal examined duodenum. Recommendation: - Continue present medications. Procedure Code(s): --- Professional --- 38879, Esophagogastroduodenoscopy, flexible, transoral; diagnostic, including collection of specimen(s) by brushing or washing, when performed (separate procedure) Diagnosis Code(s): --- Professional --- K44.9, Diaphragmatic hernia without obstruction or gangrene K92.1, Melena EGD REPORT [facility] [address] [facility] [place]. [address] NAME: ARSALAN PELAYO : 29 STATUS : ADM IN [facility]#: [id number] AGE: 86 ADM/REG DATE : 11/07/16 MR#: [id number] REPORT SERV DATE: 11/09/16 DICTATED BY: JOSÉ WILSON. DATE: 11/09/16 REPORT STATUS : Draft TRANSCRIBED BY: [employer] DATE: 11/09/16 CPT copyright 2013 [employer]. All rights reserved. The codes documented in this report are preliminary and upon auto body repairer fiberglass review may be revised to meet current compliance requirements. JOSÉ WILSON MD 11/09/2016 8:55 AM This report has been signed electronically. Number of Addenda: 0 Note Initiated On: 11/09/2016 8:38 AM Scope Withdrawal Time 0 hours 0 minutes 0 seconds [address] [facility] [address] [place] [address]
--- NOTE | ~2016-11-07 | HP ---
History And Physical [place] [id number] [place]. [address] NAME: ARSALAN PELAYO : 28 STATUS : ADM IN [facility]#: [id number] AGE: 86 ADM/REG DATE : 11/07/16 MR#: [id number] REPORT SERV DATE: 11/07/16 DICTATED BY: DERRICK MARTINEZ DATE: 11/07/16 REPORT STATUS : Draft TRANSCRIBED BY: MODSanjeev DATE: 11/07/16 DATE OF ADMISSION: 11/07/2016 HISTORY OF PRESENT ILLNESS: Mr. Pelayo is an 86-year-old, male patient, who was brought in here from [facility] because of gastrointestinal bleed. The patient's is with the patient and gives me most history as the patient himself is a little too tired and gives me permission to get history from his . states that she was called this morning by the facility up there saying that they had found blood in his stools and he was having dark stools and also some dark red blood in the stools starting this morning, that is the reason they decided to bring him in. Other than that, there are no other complaints. The patient himself states that the only symptom he is having right now is a little stomach discomfort and a feeling of rumbling in his stomach. Other than that, no other complaints. The patient denies any headaches, blurry vision, trouble swallowing, chest pain, shortness of breath, nausea, vomiting, any significant abdominal pain other than the rumbling and slight discomfort in the upper stomach that he is having. There is no dysuria, hematuria. He denies any pain in any other place. REVIEW OF SYSTEMS: Negative except for the GI bleed. There is no history of hematemesis. Past medical history and HPC - the patient has had recurrent GI bleed in the past. In fact, he was admitted most recently for a fractured right hip which was fixed by Dr. Moraes and he was sent back to [facility] on Coumadin. The patient typically is on Eliquis for paroxysmal atrial fibrillation, but for some reason, he was switched from Eliquis to Coumadin according to . I am suspecting that this could have been because the patient is a high risk for bleed with the Eliquis, he was changed to Coumadin. Now with the Coumadin too, he seems to be having problems and GI bleed. According to patient's , he did get his dose of Coumadin last night. 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 There apparently is no record at history of any atrial fibrillation, but the patient's is not sure. There is also history of kidney stones and again a history of recurrent GI bleed in the past. 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 SURGICAL HISTORY: Positive for right hip fracture fixation by Dr. Chinchilla and again hip fracture fixation by Dr. Moraes. SOCIAL HISTORY: The patient does not smoke or drink or do any illicit drugs. The patient is and currently he is at [facility] recovering and rehabilitating from the recent right hip replacement. ALLERGIES: THE PATIENT HAS NO KNOWN DRUG ALLERGIES. HOME MEDICATIONS: Now include Coumadin 3 mg every evening, ferrous sulfate 325 mg p.o. with meals three times a day, Pepcid 20 mg p.o. b.i.d., aspirin 81 mg once a day, Coreg 6.25 mg History And Physical [address] [address] NAME: ARSALAN PELAYO : 28 STATUS : ADM IN [facility]#: [id number] AGE: 86 ADM/REG DATE : 11/07/16 MR#: [id number] REPORT SERV DATE: 11/07/16 DICTATED BY: DERRICK MARTINEZ DATE: 11/07/16 REPORT STATUS : Draft TRANSCRIBED BY: CAMILO DATE: 11/07/16 p.o. b.i.d., diltiazem 240 mg once a day, Colace 100 mg p.o. b.i.d., Cardura 4 mg once a day, Hydrea 500 mg once a day, multivitamins and minerals, and [place] 5/325 one p.o. q.4 hours p.r.n. for pain. PHYSICAL EXAMINATION: GENERAL: The patient is alert, oriented, appears a little tired and is able to give me history himself, but prefers that his do the talking because he says that he is tired. Skin and mucous membranes appear a little dry. VITAL SIGNS: Show that his blood pressure is 124/60, pulse is 60 per minute. The patient is afebrile and oxygen saturation is 97% on 2 L of oxygen. HEENT: Unremarkable. There is no facial asymmetry. NECK: There is no JVD. CARDIOVASCULAR SYSTEM: S1 and S2 appreciated. Sinus rhythm. I could not appreciate any murmurs, rubs, or gallops. Specifically, the patient is in sinus rhythm now. RESPIRATORY SYSTEM: Clear lungs. ABDOMEN: Soft, nontender, nondistended. Bowel sounds are hyperactive. EXTREMITIES: There is no edema. Pedal pulses are well felt. Right leg is in a cast and this is from the recent fracture that the patient had. NEURO: There are no neurological deficits at this time. MUSCULOSKELETAL: Exam as above. PSYCHIATRIC: Has normal affect at this time. LABORATORY DATA: CBC today shows WBC of 17.1, hemoglobin 11.4, hematocrit of 34.8, and platelet count of 847. It is to be noted that the patient does have polycythemia. INR today is 1.1 surprisingly because the patient has received Coumadin 3 mg according to the yesterday. His comprehensive metabolic profile shows sodium 133, potassium 4.4, BUN 22, creatinine 0.9. LFTs are normal. Lipase is normal. Total bilirubin is 0.5. Alkaline phosphatase is slightly elevated at 149. Albumin is 2.4. ASSESSMENT: My assessment on this patient is, 1. Recurrent gastrointestinal bleed, likely upper gastrointestinal bleed because I inspected stools and stools really appear melanotic with some dark red blood. The patient has already had two episodes in the ER. Hence, for this, hold his aspirin, hold all anticoagulation including Coumadin and keep the patient on SCDs and FAUSTO hose stockings for prevention of DVT. We will start him on IV fluids and keep type and cross, 2 units of PRBCs on hold. We will also consult picker tender on-call for possible endoscopy. We will also keep the patient on PPI, IV Protonix 40 mg twice a day. 2. Polycythemia rubra vera. For this, we will continue his hydroxyurea. 3. Leukocytosis. This could be part of his polycythemia itself. However, we will go ahead and check blood cultures and also check a procalcitonin level. 4. The patient does not appear septic at all at this time. Hence, I am really suspecting the leukocytosis is part of polycythemia. 5. Recent right hip surgery which is stable and the patient is rehabilitating right now. 6. Status post IVC filter placement. Please look at discharge summary dictated on History And Physical [address] [place]. [address] NAME: ARSALAN PELAYO : 28 STATUS : ADM IN PAT#: [id number] AGE: 86 ADM/REG DATE : 11/07/16 MR#: [id number] REPORT SERV DATE: 11/07/16 DICTATED BY: DERRICK MARTINEZ DATE: 11/07/16 REPORT STATUS : Draft TRANSCRIBED BY: CAMILO DATE: 11/07/16 10/30/[address] Gonzalez. So, the patient has had an IVC filter placed because I guess the patient has been a high risk for GI bleed in the past, but at the same time suspected that anticoagulation would cause recurrent GI bleed and hence the patient has had an IVC filter put in recently. 7. Hypertension - controlled. 8. Coronary artery disease and history of myocardial infarction, which is stable. 9. Chronic obstructive pulmonary disease - stable. Plan is to admit the patient as above and have GI follow him. We will check an H and H every eight hours and as mentioned above, type and cross and hold 2 units of PRBCs ready to be transfused if needed. The patient's code status is a DNR and I do have the papers and directive that says that the patient's code status is a do not resuscitate at this time. However, is agreeable to blood transfusion and also endoscopy if need be. Hence, we will admit the patient and follow him and continue his home medications except aspirin and except Coumadin and other anticoagulants. Surprisingly, his INR is normal at this time and hence he will not be getting any vitamin K as he is still subtherapeutic on his INR and is not in coagulopathy. We will follow the patient. HAM/CAMILO Derrick Martinez M.D. / [id number] CC: Zeinab Godoy M.D.
--- NOTE | ~2016-11-07 | CN ---
Consultation Report [place] [id number] [facility] [place]. [address] NAME: ARSALAN PHILLIPS : 28 STATUS : ADM IN PAT#: [id number] AGE: 86 ADM/REG DATE : 11/07/16 MR#: [id number] REPORT SERV DATE: 11/08/16 DICTATED BY: JOSÉ WILSON DATE: 11/08/16 REPORT STATUS : Draft TRANSCRIBED BY: MODL DATE: 11/08/16 DATE OF CONSULTATION: HISTORY OF PRESENT ILLNESS: This is an 86-year-old white male admitted with GI bleed some dark red stools and apparently some bright red blood this a.m. Hemoglobin was 11.4. The patient has polycythemia vera and is on hydroxyurea. White count is 17,000 and platelets 776,000. The patient had been on Coumadin after right femur fracture and surgery. INR was 1.1 on admission. Previously had been on Eliquis. He has history of some COPD, coronary artery disease with an [place], past history of prostate CA, treated with radiation, also history of renal stones. SOCIAL HISTORY: Negative for EtOH and nicotine. FAMILY HISTORY: Positive for colon cancer. The patient is also status post IVC filter. PHYSICAL EXAMINATION: GENERAL: Elderly alert white male. HEENT: Anicteric. NECK: Negative. Chest. Clear to percussion. HEART: Irregular rhythm. ABDOMEN: Soft, nontender. Bowel sounds active. EXTREMITIES: Pertinent for scar of his recent right femur fracture with surgery. NEUROLOGIC: Grossly intact. ASSESSMENT: 1. Gastrointestinal bleed, dark and bright red blood. Hemoglobin 11.4. 2. History of diverticular bleed. 3. Recent right femur fracture with surgery. 4. Status post IVC filter. 5. Coronary artery disease, status post myocardial infarction. 6. Chronic obstructive pulmonary disease. 7. Polycythemia vera, on hydroxyurea. 8. History of prostate cancer, treated with radiation. SUGGESTION: 1. Continue to follow H and H. 2. We will schedule for EGD and colonoscopy. Risks and benefits explained to the patient who is in agreement with the above. Thank you very much for the consultation. DC/MODL Consultation Report [address] [place]. [address] NAME: ARSALAN PHILLIPS : 28 STATUS : ADM IN PAT#: [id number] AGE: 86 ADM/REG DATE : 11/07/16 MR#: [id number] REPORT SERV DATE: 11/08/16 DICTATED BY: JOSÉ WILSON DATE: 11/08/16 REPORT STATUS : Draft TRANSCRIBED BY: CAMILO DATE: 11/08/16 José Wilson M.D. / [id number] CC: Zeinab Godoy M.D.
--- NOTE | ~2016-11-07 | EGD ---
EGD REPORT [facility] [address] [place]. [address] NAME: ARSALAN PELAYO : 28 STATUS : ADM IN PAT#: [id number] AGE: 86 ADM/REG DATE : 11/07/16 MR#: [id number] REPORT SERV DATE: 11/10/16 DICTATED BY: JOSÉ WILSON DATE: 11/10/16 REPORT STATUS : Draft TRANSCRIBED BY: [employer] DATE: 11/10/16 Endoscopy Center Patient Name: Arsalan Pelayo Date of : 1930 Attending MD: JOSÉ WILSON MD Procedure Date No Time: 11/10/2016 Procedure: Colonoscopy Indications: Hematochezia Referring MD: PATRICIA DIAZ MD Medicines: as per anesthesia Complications: No immediate complications. Procedure: Pre-Anesthesia Assessment: - ASA Grade Assessment: III - A patient with severe systemic disease. After I obtained informed consent, the scope was passed under direct vision. Throughout the procedure, the patient's blood pressure, pulse, and oxygen saturations were monitored continuously. The PCF [id number] was introduced through the anus and advanced to the cecum, identified by appendiceal orifice and ileocecal valve. The colonoscopy was performed without difficulty. The patient tolerated the procedure. The quality of the bowel preparation was fair. Findings: The perianal and digital rectal examinations were normal. Multiple small and large-mouthed diverticula were found in the sigmoid colon, in the descending colon, in the transverse colon, in the ascending colon and in the cecum. Internal hemorrhoids were found during endoscopy and were mild. Impression: - Diverticulosis in the sigmoid colon, in the descending colon, in the transverse colon, in the ascending colon and in the cecum. - Internal hemorrhoids. Recommendation: - Continue present medications. Procedure Code(s): --- Professional --- 54915, Colonoscopy, flexible, proximal to splenic flexure; diagnostic, with or without collection of specimen(s) by brushing or washing, with or without colon decompression (separate procedure) Diagnosis Code(s): --- Professional --- EGD REPORT [address] [facility] [address] NAME: ARSALAN PELAYO : 28 STATUS : ADM IN [facility]#: [id number] AGE: 86 ADM/REG DATE : 11/07/16 MR#: [id number] REPORT SERV DATE: 11/10/16 DICTATED BY: JOSÉ WILSON. DATE: 11/10/16 REPORT STATUS : Draft TRANSCRIBED BY: [employer] DATE: 11/10/16 K64.8, Other hemorrhoids K57.30, Diverticulosis of large intestine without perforation or abscess without bleeding K92.1, Melena CPT copyright 2013 [employer]. All rights reserved. The codes documented in this report are preliminary and upon medical billing coder review may be revised to meet current compliance requirements. JOSÉ WILSON MD 11/10/2016 2:17 PM This report has been signed electronically. Number of Addenda: 0 Note Initiated On: 11/10/2016 1:39 PM Scope Withdrawal Time 0 hours 10 minutes [address] [place] [address] [place] [address]
--- NOTE | ~2016-11-07 | IDS ---
Interim Discharge Summary [facility] [address] [place]. [address] NAME: ARSALAN PHILLIPS : 28 STATUS : ADM IN [facility]#: [id number] AGE: 86 ADM/REG DATE : 11/07/16 MR#: [id number] REPORT SERV DATE: 11/15/16 DICTATED BY: JENNY MAGUIRE DATE: 11/15/16 REPORT STATUS : Draft TRANSCRIBED BY: MODL DATE: 11/15/16 ADMISSION DATE: 11/07/2016 DISCHARGE DATE: CURRENT HOSPITAL DIAGNOSES: 1. GI bleed. 2. Recent hip surgery, was on Coumadin anticoagulation at [facility] after above. 3. History of chronic obstructive pulmonary disease. 4. History of coronary artery disease. 5. History of deep venous thrombosis. 6. Possible history of atrial fibrillation. 7. Polycythemia vera. CONSULTATIONS: Dr. Thompson, GI; Oncology; and Interventional Radiology. PROCEDURES: 1. Endoscopy on the , upper, showing normal esophagus, hiatal hernia, normal duodenum. 2. Endoscopy lower on the showing diverticulosis in descending and transverse colon. Ascending colon and cecum, internal hemorrhoids. No active bleeding noted. 3. CT-guided biopsy done on the . 4. CT of the abdomen and pelvis done on the showing no mechanical obstruction; diverticulosis present; on image 138, there is the possible suggestion of an annular neoplasm, may wish to consider barium enema or endoscopy for further evaluation. Slight irregular nodule in the posterior aspect of the right middle lobe, measuring 1 x 1, recommend nonemergent complete contrast enhanced CT of the chest for further evaluation. 5. CT of the chest done on the showing multiple bilateral pulmonary nodules, possible malignancy versus inflammatory. 6. X-ray of the right femur showing orthopedic plate with multiple screws and wire circ, which is transfixing the midshaft right femoral fracture, total hip prosthesis in anatomic alignment. CURRENT PHYSICAL FINDINGS AND HPI: Please see initial dictated H and P by Dr. Alexandre. In brief, the patient was brought here from [facility] for a GI bleed. Vital signs at time of admission, BP was 146/65. He has had no significant hypo or hypertension issues here. He was afebrile on presentation and has remained afebrile during his hospital stay. LAB WORK: His initial showed a procalcitonin 0.05. His initial BMP showed a mild hyponatremia, which corrected and has maintained stable, and no significant abnormalities in BUN and creatinine. His initial white count was 17,000 since most recently 11.5; his initial hemoglobin was 11.4, which was in line with his previous discharge hemoglobin. His lowest hemoglobin here has been 9.3. He has been very steady at approximately 10 and 30 on his hemoglobin and hematocrit. His INR when he presented was 1.1. Initial urinalysis was negative. Blood cultures on the are negative to date. HOSPITAL COURSE: The patient was admitted for a GI bleed. Standard GI bleeding parameters Interim Discharge Summary [address] [address] NAME: ARSALAN PHILLIPS : 28 STATUS : ADM IN [facility]#: [id number] AGE: 86 ADM/REG DATE : 11/07/16 MR#: [id number] REPORT SERV DATE: 11/15/16 DICTATED BY: JENNY MAGUIRE DATE: 11/15/16 REPORT STATUS : Draft TRANSCRIBED BY: CAMILO DATE: 11/15/16 were followed. He was given IV fluids, had IV access, serial hemoglobins were requested. Transfusion parameters were given. His home medications were reviewed. His Coumadin was held. He was not having any active hematemesis. He was not hemodynamically unstable. Orthopedics was consulted. Dr. Thompson was consulted. Initial courtesy notification was given to Oncology. His first hospital night, his hemoglobins remained stable. GI scheduled him for an upper endoscopy the following morning. When this was nondiagnostic, a colonoscopy was then scheduled with prep with the findings noted above. I took over his care on the , serial hemoglobins were followed. X-ray was done of his hip, it appeared to be fine. He was advanced on a diet per GI, and PT was consulted for his return to SNF. Dr. Moraes came by and authorized his PT parameters. After his endoscopy discussion with Dr. Thompson about restarting his anticoagulants, he had multiple reasons to need anticoagulants. He apparently had a question of a thrombus prior to his hip surgery. He was post he also had a history of atrial fib, and he has polycythemia vera. Fortunately, he did have an IVC filter placed. Recommendations were to advance his diet. If he had no further bleeding, to restart his anticoagulants. Dr. Lou was consulted per the patient's request as there was some discussion as to what would be the most appropriate anticoagulant given his multiple needs. He had no further bleeding. Hemoglobin and hematocrit remained stable since he was off anticoagulants, and his abnormal CT abdomen and pelvis noted and a lung nodule was noted. CT scan was ordered when this came back concerning. His Eliquis was held. He was started on Lovenox, and CT-guided biopsy was requested, which has been done. The patient tolerated the procedure well without any immediate complications and he remains stable. CURRENT DISPOSITION AND PLAN: He will need to restart anticoagulants in the morning if he shows no signs of bleeding post procedure, the patient is favoring a return to [facility]. He is having to be re-approved for return to [facility] and this is in the process of being done. He has no other significant issues at this time. JOSEPF/MODL Jenny Maguire M.D. / [id number] CC: Zeinab Lopez M.D.
--- NOTE | ~2016-11-07 | DS ---
Discharge Summary [address] [address] [place]. [address] NAME: ARSALAN PHILLIPS : 28 STATUS : DIS IN PAT#: [id number] AGE: 86 ADM/REG DATE : 11/07/16 MR#: [id number] REPORT SERV DATE: 11/22/16 DICTATED BY: JEFF GRACE DATE: 11/19/16 REPORT STATUS : Draft TRANSCRIBED BY: MODL DATE: 11/19/16 ADMISSION DATE: 11/07/2016 DISCHARGE DATE: 11/19/2016 PRINCIPAL DIAGNOSIS: Gastrointestinal bleed due to diverticulosis in a setting of anticoagulants. 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 HISTORY OF PRESENT ILLNESS: Please see Dr. Alexandre's dictation on 11/07/2016. HOSPITAL COURSE: The patient admitted with a GI bleed, seen by GI and maintained being seen by [facility] for his polycythemia vera as he was taken off his Eliquis which he had been on. The patient's bleeding did stop and he improved. He was however found to have lung nodules; arrangements were made for a biopsy while he was off anticoagulants. This resulted in a brief pulmonary bleeding that stopped spontaneously. 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 For further details, please see also interim summary by Dr. Jaffe on 11/15/2016. The patient improved, he tolerated physical therapy and was returned to [facility] where he would undergo physical therapy for his recent femoral fracture. He would follow up with [facility] and with Dr. Thompson as previously scheduled, Dr. Andre Manuel p.r.nJasmyn, and with the [facility] physicians over at [place]. DICTATED BY: Zeinab Fletcher/CAMILO Jeff Grace M.D. / [id number] CC: Zeinab Fletcher M.D. David Collins, M.D. Bertrand Marquess Anz III, M.D. [facility]
[2016-11-07 14:30] LABS: BASOPHILS 0.6 %; BASOPHILS ABSOLUTE 0.11 10/3/uL (0.0-0.16); EOSINOPHILS ABSOLUTE 0.35 10/3/uL (0.0-0.53); ER CBC TAT 0 Hrs 07 Mins; HEMATOCRIT 34.8 % (40.0-51.0); HEMOGLOBIN 11.4 g/dL (13.6-17.8); IMMATURE GRANULOCYTES ABSOLUTE 0.17 10/3/uL (0.0-0.11); LYMPHOCYTES 7.9 %; LYMPHOCYTES ABSOLUTE 1.35 10/3/uL (0.67-4.30); MEAN CORPUS HGB CONC 32.8 g/dL (32.0-36.0); MEAN CORPUSCULAR HEMOGLOB 32.2 pg (26.0-34.0); MEAN CORPUSCULAR VOLUME 98.3 fL (80-100); MEAN PLATELET VOLUME 9.2 fL (9.2-13.0); MONOCYTES 10.3 %; MONOCYTES ABSOLUTE 1.77 10/3/uL (0.21-1.20); NEUTROPHILS 78.2 %; NEUTROPHILS ABSOLUTE 13.39 10/3/uL (2.02-8.40); RBC DISTRIBUTION WIDTH 16.7 % (12.0-16.0); RED CELL COUNT 3.54 10/6/uL (4.7-6.1); WHITE BLOOD CELLS 17.1 10/3/uL (4.5-10.5)
[2016-11-07 14:32] LABS: MANUAL DIFF NO %; PLATELET COUNT 847 10/3/uL (150-400)
[2016-11-07 14:35] LABS: INTERNATIONAL NORMAL RATI 1.1 UNITS (-); PARTIAL THROMBO TIME 33.9 SEC (22.5-37.2)
[2016-11-07 14:44] LABS: BUN (BLOOD UREA NITROGEN) 22 MG/DL (6-23); CALCIUM, SERUM 8.3 MG/DL (8.5-10.4); CHLORIDE, SERUM 101 MMOL/L (96-112); CO2 (CARBON DIOXIDE) 27 MMOL/L (24-34); GFR AFRICAN AMERICAN 89 ML/MIN (>=60); GFR NON AFRICAN AMERICAN 77 ML/MIN (>=60); GLUCOSE, SERUM 109 MG/DL (60-99); POTASSIUM, SERUM 4.4 MMOL/L (3.5-5.3); SGOT(AST) 33 U/L (5-40); SGPT(ALT) 30 U/L (5-65); SODIUM, SERUM 133 MMOL/L (135-148); TOTAL BILIRUBIN 0.5 MG/DL (0-1.2); TOTAL PROTEIN 6.6 G/DL (6.0-8.5)
[2016-11-07 14:45] LABS: A/G RATIO 0.6 (0.7-1.9); ALBUMIN 2.4 G/DL (3.5-5.0); ALKALINE PHOSPHATASE 149 U/L (45-117); GLOBULIN 4.2 G/DL (2.5-4.1)
[2016-11-07 14:47] LABS: PROTIME (NOT ORD) 14.2 SEC (12.0-14.5)
[2016-11-07 14:51] LABS: GIANT PLATELET OCC; POLYCHROMASIA 1+ (2-5/OIF) (0-1/OIF)
[~2016-11-07 16:14] MED LIST changes: +COREG6 PO; +ELIQUIS 2.5 MG2.5 MG PO; +FERROUS SULF325 M1 PO; +HYDREA PO; +MVI PO; +NORCO1 TA1 PO; +REFRESH OPH SO0.3 ML OPH; +T PO
[2016-11-07 20:05] LABS: HEMATOCRIT 35.3 % (40.0-51.0); HEMOGLOBIN 11.6 g/dL (13.6-17.8)
[2016-11-07 21:24] LABS: ASCORBIC ACID (UR NOT ORDER) NEG (NEG); BILIRUBIN, URINE NEGATIVE (NEG); KETONE, URINE NEGATIVE (NEG); LEUKOCYTE ESTERASE(NOT OR NEG (NEG); WBC (NOT ORDERED) (RFLEX) 1 (0-5)
[2016-11-08 05:47] LABS: BASOPHILS 0.7 %; BASOPHILS ABSOLUTE 0.11 10/3/uL (0.0-0.16); EOSINOPHILS ABSOLUTE 0.34 10/3/uL (0.0-0.53); HEMATOCRIT 33.2 % (40.0-51.0); HEMOGLOBIN 10.9 g/dL (13.6-17.8); IMMATURE GRANULOCYTES 0.5 %; IMMATURE GRANULOCYTES ABSOLUTE 0.09 10/3/uL (0.0-0.11); LYMPHOCYTES 6.9 %; LYMPHOCYTES ABSOLUTE 1.16 10/3/uL (0.67-4.30); MANUAL DIFF NO %; MEAN CORPUS HGB CONC 32.8 g/dL (32.0-36.0); MEAN CORPUSCULAR HEMOGLOB 32.3 pg (26.0-34.0); MEAN CORPUSCULAR VOLUME 98.5 fL (80-100); MEAN PLATELET VOLUME 8.9 fL (9.2-13.0); MONOCYTES 10.7 %; MONOCYTES ABSOLUTE 1.81 10/3/uL (0.21-1.20); NEUTROPHILS 79.2 %; NEUTROPHILS ABSOLUTE 13.36 10/3/uL (2.02-8.40); PLATELET COUNT 776 10/3/uL (150-400); RBC DISTRIBUTION WIDTH 16.9 % (12.0-16.0); RED CELL COUNT 3.37 10/6/uL (4.7-6.1); WHITE BLOOD CELLS 16.9 10/3/uL (4.5-10.5)
[2016-11-08 05:52] LABS: A/G RATIO 0.6 (0.7-1.9); ALBUMIN 2.3 G/DL (3.5-5.0); ALKALINE PHOSPHATASE 109 U/L (45-117); BUN (BLOOD UREA NITROGEN) 20 MG/DL (6-23); CALCIUM, SERUM 8.5 MG/DL (8.5-10.4); CHLORIDE, SERUM 107 MMOL/L (96-112); CO2 (CARBON DIOXIDE) 23 MMOL/L (24-34); GFR AFRICAN AMERICAN 93 ML/MIN (>=60); GFR NON AFRICAN AMERICAN 80 ML/MIN (>=60); GLOBULIN 4.1 G/DL (2.5-4.1); GLUCOSE, SERUM 95 MG/DL (60-99); POTASSIUM, SERUM 4.3 MMOL/L (3.5-5.3); SGOT(AST) 35 U/L (5-40); SGPT(ALT) 26 U/L (5-65); SODIUM, SERUM 138 MMOL/L (135-148); TOTAL BILIRUBIN 0.6 MG/DL (0-1.2); TOTAL PROTEIN 6.4 G/DL (6.0-8.5)
[2016-11-08 05:55] LABS: INTERNATIONAL NORMAL RATI 1.2 UNITS (-); PROTIME (NOT ORD) 14.6 SEC (12.0-14.5)
[2016-11-08 14:47] LABS: HEMATOCRIT 31.6 % (40.0-51.0); HEMOGLOBIN 10.3 g/dL (13.6-17.8)
[2016-11-08 19:17] LABS: HEMOGLOBIN 11.1 g/dL (13.6-17.8)
[2016-11-08 19:20] LABS: HEMATOCRIT 35.1 % (40.0-51.0)
[2016-11-09 05:32] LABS: INTERNATIONAL NORMAL RATI 1.2 UNITS (-); PROTIME (NOT ORD) 15.3 SEC (12.0-14.5)
[2016-11-09 05:41] LABS: CALCIUM, SERUM 8.4 MG/DL (8.5-10.4); CHLORIDE, SERUM 108 MMOL/L (96-112); CO2 (CARBON DIOXIDE) 25 MMOL/L (24-34); CREATININE 0.72 MG/DL (0.70-1.30); GFR AFRICAN AMERICAN 97 ML/MIN (>=60); GFR NON AFRICAN AMERICAN 84 ML/MIN (>=60); GLUCOSE, SERUM 93 MG/DL (60-99); POTASSIUM, SERUM 3.7 MMOL/L (3.5-5.3); SODIUM, SERUM 140 MMOL/L (135-148)
[2016-11-09 05:42] LABS: BUN (BLOOD UREA NITROGEN) 14 MG/DL (6-23)
[2016-11-09 05:49] LABS: BASOPHILS 0.7 %; BASOPHILS ABSOLUTE 0.11 10/3/uL (0.0-0.16); EOSINOPHILS 2.5 %; EOSINOPHILS ABSOLUTE 0.37 10/3/uL (0.0-0.53); HEMATOCRIT 33.1 % (40.0-51.0); HEMOGLOBIN 10.7 g/dL (13.6-17.8); IMMATURE GRANULOCYTES 0.7 %; LYMPHOCYTES 6.6 %; LYMPHOCYTES ABSOLUTE 0.97 10/3/uL (0.67-4.30); MEAN CORPUS HGB CONC 32.3 g/dL (32.0-36.0); MEAN CORPUSCULAR HEMOGLOB 32.2 pg (26.0-34.0); MEAN CORPUSCULAR VOLUME 99.7 fL (80-100); MEAN PLATELET VOLUME 8.8 fL (9.2-13.0); MONOCYTES 10.1 %; NEUTROPHILS 79.4 %; NEUTROPHILS ABSOLUTE 11.73 10/3/uL (2.02-8.40); RBC DISTRIBUTION WIDTH 17.1 % (12.0-16.0); RED CELL COUNT 3.32 10/6/uL (4.7-6.1); WHITE BLOOD CELLS 14.8 10/3/uL (4.5-10.5)
[2016-11-09 05:51] LABS: MANUAL DIFF NO %; PLATELET COUNT 789 10/3/uL (150-400)
[2016-11-09 10:39] LABS: HEMATOCRIT 34.8 % (40.0-51.0); HEMOGLOBIN 11.3 g/dL (13.6-17.8)
[2016-11-09 21:02] LABS: HEMOGLOBIN 9.3 g/dL (13.6-17.8)
[2016-11-09 21:03] LABS: HEMATOCRIT 28.8 % (40.0-51.0)
[2016-11-10 06:05] LABS: BASOPHILS 0.6 %; BASOPHILS ABSOLUTE 0.08 10/3/uL (0.0-0.16); EOSINOPHILS 2.5 %; EOSINOPHILS ABSOLUTE 0.34 10/3/uL (0.0-0.53); HEMATOCRIT 29.4 % (40.0-51.0); HEMOGLOBIN 9.7 g/dL (13.6-17.8); IMMATURE GRANULOCYTES 0.5 %; IMMATURE GRANULOCYTES ABSOLUTE 0.07 10/3/uL (0.0-0.11); LYMPHOCYTES 9.3 %; LYMPHOCYTES ABSOLUTE 1.26 10/3/uL (0.67-4.30); MEAN CORPUSCULAR HEMOGLOB 32.6 pg (26.0-34.0); MEAN CORPUSCULAR VOLUME 98.7 fL (80-100); MEAN PLATELET VOLUME 9.1 fL (9.2-13.0); MONOCYTES 12.1 %; MONOCYTES ABSOLUTE 1.64 10/3/uL (0.21-1.20); NEUTROPHILS ABSOLUTE 10.21 10/3/uL (2.02-8.40); PLATELET COUNT 673 10/3/uL (150-400); RBC DISTRIBUTION WIDTH 17.5 % (12.0-16.0); RED CELL COUNT 2.98 10/6/uL (4.7-6.1); WHITE BLOOD CELLS 13.6 10/3/uL (4.5-10.5)
[2016-11-10 06:07] LABS: MANUAL DIFF NO %
[2016-11-10 12:52] LABS: HEMATOCRIT 31.1 % (40.0-51.0)
[2016-11-10 20:14] LABS: HEMATOCRIT 30.2 % (40.0-51.0); HEMOGLOBIN 9.7 g/dL (13.6-17.8)
[2016-11-11 05:57] LABS: BASOPHILS 0.5 %; BASOPHILS ABSOLUTE 0.06 10/3/uL (0.0-0.16); EOSINOPHILS 2.7 %; EOSINOPHILS ABSOLUTE 0.31 10/3/uL (0.0-0.53); HEMATOCRIT 29.8 % (40.0-51.0); HEMOGLOBIN 9.7 g/dL (13.6-17.8); IMMATURE GRANULOCYTES 0.4 %; IMMATURE GRANULOCYTES ABSOLUTE 0.05 10/3/uL (0.0-0.11); LYMPHOCYTES 9.9 %; LYMPHOCYTES ABSOLUTE 1.15 10/3/uL (0.67-4.30); MEAN CORPUS HGB CONC 32.6 g/dL (32.0-36.0); MEAN CORPUSCULAR HEMOGLOB 32.3 pg (26.0-34.0); MEAN CORPUSCULAR VOLUME 99.3 fL (80-100); MEAN PLATELET VOLUME 8.8 fL (9.2-13.0); MONOCYTES 12.2 %; MONOCYTES ABSOLUTE 1.42 10/3/uL (0.21-1.20); NEUTROPHILS 74.3 %; NEUTROPHILS ABSOLUTE 8.68 10/3/uL (2.02-8.40); PLATELET COUNT 651 10/3/uL (150-400); RBC DISTRIBUTION WIDTH 17.4 % (12.0-16.0); WHITE BLOOD CELLS 11.7 10/3/uL (4.5-10.5)
[2016-11-11 06:05] LABS: MANUAL DIFF NO %
[2016-11-11 06:16] LABS: BUN (BLOOD UREA NITROGEN) 13 MG/DL (6-23); CALCIUM, SERUM 8.2 MG/DL (8.5-10.4); CHLORIDE, SERUM 104 MMOL/L (96-112); CO2 (CARBON DIOXIDE) 28 MMOL/L (24-34); CREATININE 0.87 MG/DL (0.70-1.30); GFR AFRICAN AMERICAN 90 ML/MIN (>=60); GFR NON AFRICAN AMERICAN 78 ML/MIN (>=60); GLUCOSE, SERUM 92 MG/DL (60-99); POTASSIUM, SERUM 4.1 MMOL/L (3.5-5.3); SODIUM, SERUM 138 MMOL/L (135-148)
[2016-11-11 12:58] LABS: HEMATOCRIT 31.3 % (40.0-51.0); HEMOGLOBIN 10.2 g/dL (13.6-17.8)
[2016-11-11 20:10] LABS: HEMATOCRIT 32.5 % (40.0-51.0); HEMOGLOBIN 10.6 g/dL (13.6-17.8)
[2016-11-12 06:29] LABS: BASOPHILS 0.5 %; BASOPHILS ABSOLUTE 0.06 10/3/uL (0.0-0.16); EOSINOPHILS 2.8 %; EOSINOPHILS ABSOLUTE 0.31 10/3/uL (0.0-0.53); IMMATURE GRANULOCYTES 0.3 %; IMMATURE GRANULOCYTES ABSOLUTE 0.03 10/3/uL (0.0-0.11); LYMPHOCYTES 10.6 %; MEAN CORPUS HGB CONC 32.3 g/dL (32.0-36.0); MEAN CORPUSCULAR HEMOGLOB 32.3 pg (26.0-34.0); MONOCYTES 11.7 %; MONOCYTES ABSOLUTE 1.32 10/3/uL (0.21-1.20); NEUTROPHILS 74.1 %; NEUTROPHILS ABSOLUTE 8.35 10/3/uL (2.02-8.40); PLATELET COUNT 578 10/3/uL (150-400); RBC DISTRIBUTION WIDTH 17.4 % (12.0-16.0); WHITE BLOOD CELLS 11.3 10/3/uL (4.5-10.5)
[2016-11-12 06:36] LABS: MANUAL DIFF NO %
[2016-11-12 12:03] LABS: HEMATOCRIT 31.9 % (40.0-51.0); HEMOGLOBIN 10.4 g/dL (13.6-17.8)
[2016-11-13 06:53] LABS: BASOPHILS 0.7 %; BASOPHILS ABSOLUTE 0.08 10/3/uL (0.0-0.16); EOSINOPHILS 3.3 %; EOSINOPHILS ABSOLUTE 0.39 10/3/uL (0.0-0.53); HEMOGLOBIN 9.9 g/dL (13.6-17.8); IMMATURE GRANULOCYTES 0.3 %; IMMATURE GRANULOCYTES ABSOLUTE 0.04 10/3/uL (0.0-0.11); LYMPHOCYTES 11.9 %; LYMPHOCYTES ABSOLUTE 1.39 10/3/uL (0.67-4.30); MANUAL DIFF NO %; MEAN CORPUSCULAR HEMOGLOB 32.1 pg (26.0-34.0); MEAN CORPUSCULAR VOLUME 97.4 fL (80-100); MEAN PLATELET VOLUME 9.1 fL (9.2-13.0); MONOCYTES 10.7 %; MONOCYTES ABSOLUTE 1.25 10/3/uL (0.21-1.20); NEUTROPHILS 73.1 %; NEUTROPHILS ABSOLUTE 8.56 10/3/uL (2.02-8.40); PLATELET COUNT 522 10/3/uL (150-400); RBC DISTRIBUTION WIDTH 17.3 % (12.0-16.0); RED CELL COUNT 3.08 10/6/uL (4.7-6.1); WHITE BLOOD CELLS 11.7 10/3/uL (4.5-10.5)
[2016-11-14 07:07] LABS: HEMATOCRIT 30.4 % (40.0-51.0); HEMOGLOBIN 10.2 g/dL (13.6-17.8)
[2016-11-15 07:22] LABS: BASOPHILS 0.8 %; BASOPHILS ABSOLUTE 0.09 10/3/uL (0.0-0.16); EOSINOPHILS 3.1 %; EOSINOPHILS ABSOLUTE 0.36 10/3/uL (0.0-0.53); HEMATOCRIT 30.5 % (40.0-51.0); IMMATURE GRANULOCYTES 0.3 %; IMMATURE GRANULOCYTES ABSOLUTE 0.04 10/3/uL (0.0-0.11); LYMPHOCYTES 11.7 %; LYMPHOCYTES ABSOLUTE 1.34 10/3/uL (0.67-4.30); MANUAL DIFF NO %; MEAN CORPUS HGB CONC 32.8 g/dL (32.0-36.0); MEAN CORPUSCULAR HEMOGLOB 32.2 pg (26.0-34.0); MEAN CORPUSCULAR VOLUME 98.1 fL (80-100); MEAN PLATELET VOLUME 9.3 fL (9.2-13.0); MONOCYTES 11.1 %; MONOCYTES ABSOLUTE 1.28 10/3/uL (0.21-1.20); NEUTROPHILS ABSOLUTE 8.38 10/3/uL (2.02-8.40); PLATELET COUNT 495 10/3/uL (150-400); RBC DISTRIBUTION WIDTH 17.2 % (12.0-16.0); RED CELL COUNT 3.11 10/6/uL (4.7-6.1); WHITE BLOOD CELLS 11.5 10/3/uL (4.5-10.5)
[2016-11-17 06:53] LABS: BASOPHILS 0.6 %; BASOPHILS ABSOLUTE 0.07 10/3/uL (0.0-0.16); EOSINOPHILS 2.9 %; EOSINOPHILS ABSOLUTE 0.37 10/3/uL (0.0-0.53); HEMATOCRIT 31.1 % (40.0-51.0); HEMOGLOBIN 10.2 g/dL (13.6-17.8); IMMATURE GRANULOCYTES 0.6 %; IMMATURE GRANULOCYTES ABSOLUTE 0.08 10/3/uL (0.0-0.11); LYMPHOCYTES 11.3 %; LYMPHOCYTES ABSOLUTE 1.43 10/3/uL (0.67-4.30); MEAN CORPUS HGB CONC 32.8 g/dL (32.0-36.0); MEAN CORPUSCULAR HEMOGLOB 32.7 pg (26.0-34.0); MEAN CORPUSCULAR VOLUME 99.7 fL (80-100); MEAN PLATELET VOLUME 9.1 fL (9.2-13.0); MONOCYTES 11.7 %; MONOCYTES ABSOLUTE 1.48 10/3/uL (0.21-1.20); NEUTROPHILS 72.9 %; NEUTROPHILS ABSOLUTE 9.18 10/3/uL (2.02-8.40); PLATELET COUNT 427 10/3/uL (150-400); RBC DISTRIBUTION WIDTH 17.6 % (12.0-16.0); RED CELL COUNT 3.12 10/6/uL (4.7-6.1); WHITE BLOOD CELLS 12.6 10/3/uL (4.5-10.5)
[2016-11-17 06:54] LABS: MANUAL DIFF NO %
[2016-11-17 07:05] LABS: CALCIUM, SERUM 8.6 MG/DL (8.5-10.4); CHLORIDE, SERUM 96 MMOL/L (96-112); CO2 (CARBON DIOXIDE) 26 MMOL/L (24-34); CREATININE 0.86 MG/DL (0.70-1.30); GFR AFRICAN AMERICAN 90 ML/MIN (>=60); GFR NON AFRICAN AMERICAN 78 ML/MIN (>=60); GLUCOSE, SERUM 102 MG/DL (60-99); POTASSIUM, SERUM 4.8 MMOL/L (3.5-5.3)
[2016-11-17 07:06] LABS: BUN (BLOOD UREA NITROGEN) 18 MG/DL (6-23); PHOSPHORUS, SERUM 3.5 MG/DL (2.5-4.5); SODIUM, SERUM 128 MMOL/L (135-148)
[2016-11-17 18:44] LABS: SODIUM, URINE 29 MEQ/L
[2016-11-17 18:49] LABS: ASCORBIC ACID (UR NOT ORDER) NEG (NEG); BILIRUBIN, URINE NEGATIVE (NEG); KETONE, URINE NEGATIVE (NEG); LEUKOCYTE ESTERASE(NOT OR NEG (NEG); WBC (NOT ORDERED) (RFLEX) < 1 (0-5)
[2016-11-17 22:47] LABS: OSMOLALITY, URINE 258 MOSM/KG (50-1200)
[2016-11-18 06:45] LABS: BUN (BLOOD UREA NITROGEN) 15 MG/DL (6-23); CALCIUM, SERUM 8.4 MG/DL (8.5-10.4); CHLORIDE, SERUM 100 MMOL/L (96-112); CO2 (CARBON DIOXIDE) 24 MMOL/L (24-34); CREATININE 0.77 MG/DL (0.70-1.30); GFR AFRICAN AMERICAN 95 ML/MIN (>=60); GFR NON AFRICAN AMERICAN 82 ML/MIN (>=60); GLUCOSE, SERUM 90 MG/DL (60-99); POTASSIUM, SERUM 4.5 MMOL/L (3.5-5.3); SODIUM, SERUM 130 MMOL/L (135-148)
[2016-11-18 14:53] LABS: T PROTEIN (ELECT)(NOT OR 6.1 G/DL (6.0-8.5)
[2016-11-19 11:31] LABS: A/G 0.93 RATIO (0.9-2.10); ALB RELATIVE % 48.3 % (60.0-89.0); ALBUMIN (ELECTRO) 2.95 GM/DL (3.2-5.5); ALPHA 1 RELAT % (NOT ORD) 4.9 % (1.0-4.0); ALPHA 2 (ELECTRO) 0.84 GM/DL (0.5-1.10); ALPHA 2 RELAT % 13.8 % (4.5-26.0); BETA GLOBULIN (SPE) 0.67 GM/DL (0.60-1.30); GAMMA GLOBULIN (SPE) 1.34 G/DL (0.70-1.60)
[2016-11-20 19:42] LABS: KAPPA FLC 12.1 mg/dL (0.33-1.94); KAPPA LAMBDA FLC RATIO 3.69 (0.26-1.65); LAMBDA FLC 3.28 mg/dL (0.57-2.63)
[2017-02-27] MEDS ORDERED: COREG6 PO (20:02)
[2017-02-27] MEDS ORDERED: CARDCD240 PO (20:02)
[2017-02-27] MEDS ORDERED: CARDU4 PO (20:02)
[2017-02-27] MEDS ORDERED: ELIQUIS 2.5 MG2.5 MG PO (20:03)
[2017-02-27] MEDS ORDERED: NORCO1 TA1 PO (20:03)
[2017-02-27] MEDS ORDERED: HYDREA PO (20:04)
[2017-02-27] MEDS ORDERED: PRILO PO (20:04)
[2017-02-27] MEDS ORDERED: MIRALAX POWDER1 PKT PO (20:04)
[2017-03-08] MEDS ORDERED: CORDARONE PO (13:52)
== END 2016-11-19 17:40 | DRG 378 ==
LOC: ER 16:14 → 4SO 16:19
PROVIDERS: Emergency Medicine; Internal Medicine; Internal Medicine Gastroenterology; Internal Medicine Hematology & Oncology; Internal Medicine Pulmonary Disease; Nurse Practitioner
PROC: 0DJ08ZZ Inspection of Upper Intestinal Tract, Via Natural or Artificial Opening Endoscopic (ICD-10-PCS; principal; 2016-11-09 12:30)
PROC: 0BBF3ZX Excision of Right Lower Lung Lobe, Percutaneous Approach, Diagnostic (ICD-10-PCS; 2016-11-15)
DX: K57.31 Diverticulosis of large intestine without perforation or abscess with bleeding (principal); D62 Acute posthemorrhagic anemia; E85.4 Organ-limited amyloidosis; D45 Polycythemia vera; E87.1 Hypo-osmolality and hyponatremia; I48.0 Paroxysmal atrial fibrillation; J44.9 Chronic obstructive pulmonary disease, unspecified; I10 Essential (primary) hypertension; I25.10 Atherosclerotic heart disease of native coronary artery without angina pectoris; I25.2 Old myocardial infarction; Z66 Do not resuscitate; Z79.01 Long term (current) use of anticoagulants; Z86.718 Personal history of other venous thrombosis and embolism; Z87.442 Personal history of urinary calculi; Z96.641 Presence of right artificial hip joint; Z85.46 Personal history of malignant neoplasm of prostate; J99 Respiratory disorders in diseases classified elsewhere; Z87.81 Personal history of (healed) traumatic fracture; Z92.3 Personal history of irradiation; K44.9 Diaphragmatic hernia without obstruction or gangrene; K64.8 Other hemorrhoids; Z47.1 Aftercare following joint replacement surgery
CPT/HCPCS: 32405; 36415; 71010; 71020; 71250; 71260; 73552-RT; 74176; 77012; 80048; 80053; 81001; 82533; 83690; 83735; 83883; 83883-59; 83935; 84100; 84145; 84155; 84165; 84300; 84443; 85014; 85018; 85025; 85610; 85730; 86850; 86900; 86901; 86920; 87040; 88305; 88313; 88333; 93005; 97110-GP; 97161-GP; 97530-GP; 99285; A9270-GY; C9113; J2250; J2405; J3010; Q9967